=== PATIENT | female | born 2000 | race Caucasian/White ===

== ENCOUNTER 2021-03-31 09:03 | Emergency (ER) | payer OTHER ==
[~2021-03-31] VITALS: Ht 170.2 cm; Wt 70.3 kg
[2021-03-31] MEDS ORDERED: MUPIROCIN1 G1 TOP (13:16)
[2021-03-31] MEDS ORDERED: KETO10TA2 PO (13:16)
[2021-03-31] MEDS ORDERED: DUI500 PO (13:16)
== END 2021-03-31 13:17 | disposition home or self-care (01) ==
LOC: ER 09:03
DX: S91.219A Laceration without foreign body of unspecified toe(s) with damage to nail, initial encounter (principal); S79.911A Unspecified injury of right hip, initial encounter; S99.922A Unspecified injury of left foot, initial encounter; W01.0XXA Fall on same level from slipping, tripping and stumbling without subsequent striking against object, initial encounter; Y93.9 Activity, unspecified; Y92.019 Unspecified place in single-family (private) house as the place of occurrence of the external cause; Y99.9 Unspecified external cause status

== ENCOUNTER → 2021-08-20 | Outpatient (CLI) | payer OTHER ==
[~2021-08-20] MED LIST: DUI500 PO; KETO10TA2 PO; MUPIROCIN1 G1 TOP
== END | disposition home or self-care (01) ==
LOC: PRENATAL 12:48
PROVIDERS: ATTEND Obstetrics & Gynecology Maternal & Fetal Medicine
DX: O35.0XX0 Maternal care for (suspected) central nervous system malformation in fetus, not applicable or unspecified (principal); O35.3XX0 Maternal care for (suspected) damage to fetus from viral disease in mother, not applicable or unspecified; Z3A.22 22 weeks gestation of pregnancy